=== PATIENT | male | born 1950 | race Caucasian/White ===

== ENCOUNTER 2021-08-02 07:59 | Inpatient (IN) | payer BC, MEDICARE ==
[~2021-08-02 07:59] MED LIST: Dexamethasone 4 MG/ML SDV ONE; Glycopyrrolate 0.2 MG/ML 5 ML MDV ONE; Heparin Sodium 5,000 Units/ML Vial ONE; Neostigmine Methylsulfate 1 MG/ML 5 ML Syringe ONE; Ondansetron 4 MG/2 ML SDV ONE; Propofol 200 MG/20 ML SDV ONE; Rocuronium 50 MG/5 ML Vial ONE; Sodium Chloride 0.9% 10 ML ONE; Succinylcholine 200 MG/10 ML MDV ONE; fentaNYL 250 MCG/5 ML SDV ONE
[2021-08-02] MEDS ORDERED: Sodium Chloride 0.9% 500 ML ONE (08:11)
[2021-08-02] MEDS ORDERED: Acetaminophen 500 MG Tab PO ONE (08:15)
[2021-08-02 09:07] LABS: CORONAVIRUS COVID-19 NAA NEGATIVE (NEGATIVE)
[2021-08-02] MEDS ORDERED: Dextrose 5%-Lactated Ringers 1,000 ML IV SCH (09:15)
[2021-08-02] MEDS ORDERED: Ketamine 500 MG/5 ML MDV IV SCH (10:00)
[2021-08-02] MEDS ORDERED: Naloxone 0.4 MG/ML SDV IVPUSH PRN (10:00)
[2021-08-02] MEDS ORDERED: ceFAZolin 2 GM in Premix Bag 1 BAG IV ONE (10:00)
[2021-08-02] MEDS ORDERED: Ketamine 20 MG in Sodium Chloride 0.9% 19.8 ML IV SCH (10:00)
[2021-08-02] MEDS ORDERED: Lidocaine 2% Viscous Solution 15 ML UD ONE (10:08)
[2021-08-02] MEDS ORDERED: Lidocaine 4% Top Soln 50 ML Bottle ONE (10:08)
[2021-08-02] MEDS ORDERED: Lidocaine 1% 2 ML ONE (12:32)
[2021-08-02] MEDS ORDERED: Rocuronium 50 MG/5 ML Vial ONE ×2 (13:05→14:24)
[2021-08-02] MEDS ORDERED: fentaNYL 100 MCG/2 ML SDV ONE ×2 (13:23→14:09)
[2021-08-02] MEDS ORDERED: Meropenem 500 MG SDV ONE ×2 (13:27→15:26)
[2021-08-02] MEDS: Bupivacaine 0.5%/EPINEPHrine 1:200,000 50 ML MDV ONE ×2 (13:51→16:00)
[2021-08-02] MEDS ORDERED: Indocyanine Green 25 MG SDV ONE (14:00)
[2021-08-02] MEDS ORDERED: Lactated Ringers 1,000 ML ONE (14:28)
[2021-08-02] MEDS ORDERED: Sodium Chloride 0.9% 10 ML ONE (15:26)
[2021-08-02] MEDS ORDERED: Cyclobenzaprine 10 MG Tab PO PRN (16:51)
[2021-08-02] MEDS ORDERED: Ondansetron 4 MG/2 ML SDV IVPUSH PRN (17:00)
[2021-08-02] MEDS: Dextrose 5%-Lactated Ringers 1,000 ML IV SCH (17:40)
[2021-08-02] MEDS ORDERED: diphenhydrAMINE 50 MG/ML SDV IVPUSH PRN (18:00)
[2021-08-02] MEDS ORDERED: Lactated Ringers 500 ML IV ONE (18:00)
[2021-08-02] MEDS: fentaNYL 2,500 MCG in Sodium Chloride 0.9% 200 ML EPIDUR SCH (18:11)
[2021-08-02] MEDS: Acetaminophen 500 MG Tab PO SCH (18:29)
[2021-08-02] MEDS: ceFAZolin 2 GM in Premix Bag 1 BAG IV SCH (20:45)
[2021-08-02] MEDS: Phenytoin 100 MG Cap.ER PO SCH (20:47)
[2021-08-02] MEDS: Ibuprofen 600 MG Tab PO SCH (20:48)
[2021-08-02] MEDS: Pantoprazole 40 MG Vial IVPUSH SCH (20:53)
[2021-08-03] MEDS: Dextrose 5%-Lactated Ringers 1,000 ML IV SCH ×5 (00:21→22:39)
[2021-08-03] MEDS: Acetaminophen 500 MG Tab PO SCH ×5 (00:50→23:33)
[2021-08-03] MEDS ORDERED: Lactated Ringers 500 ML IV ONE (03:05)
[2021-08-03] MEDS: Ibuprofen 600 MG Tab PO SCH ×4 (03:08→20:10)
[2021-08-03] MEDS: ceFAZolin 2 GM in Premix Bag 1 BAG IV SCH ×3 (04:18→20:06)
[2021-08-03] MEDS: fentaNYL 2,500 MCG in Sodium Chloride 0.9% 200 ML EPIDUR SCH (08:00)
[2021-08-03] MEDS ORDERED: buPROPion 150 MG Tab.SR PO SCH (09:00)
[2021-08-03] MEDS: Losartan 50 MG Tab PO SCH (09:44)
[2021-08-03] MEDS: Aspirin 325 MG Tab.EC PO SCH (09:45)
[2021-08-03] MEDS: amLODIPine 5 MG Tab PO SCH (09:46)
[2021-08-03] MEDS: Metoprolol Succinate 50 MG Tab.ER PO SCH (09:47)
[2021-08-03] MEDS: Phenytoin 100 MG Cap.ER PO SCH ×2 (09:47→20:12)
[2021-08-03] MEDS: Pantoprazole 40 MG Vial IVPUSH SCH (20:09)
[2021-08-04] MEDS: Ibuprofen 600 MG Tab PO SCH ×4 (01:54→20:04)
[2021-08-04] MEDS: ceFAZolin 2 GM in Premix Bag 1 BAG IV SCH ×3 (04:58→21:10)
[2021-08-04] MEDS: fentaNYL 2,500 MCG in Sodium Chloride 0.9% 200 ML EPIDUR SCH (05:41)
[2021-08-04] MEDS: Acetaminophen 500 MG Tab PO SCH ×4 (05:43→23:57)
[2021-08-04] MEDS ORDERED: Haloperidol Lactate 5 MG/ML SDV IVPUSH PRN (08:00)
[2021-08-04] MEDS: Magnesium Sulfate/Water 2 GM in Premix Bag 1 BAG IV SCH ×3 (08:05→20:05)
[2021-08-04] MEDS: Dextrose 5%-Lactated Ringers 1,000 ML IV SCH ×2 (09:01→21:30)
[2021-08-04] MEDS: Losartan 50 MG Tab PO SCH (09:02)
[2021-08-04] MEDS: Aspirin 325 MG Tab.EC PO SCH (09:03)
[2021-08-04] MEDS: amLODIPine 5 MG Tab PO SCH (09:04)
[2021-08-04] MEDS: Phenytoin 100 MG Cap.ER PO SCH ×2 (09:05→20:11)
[2021-08-04] MEDS: Metoprolol Succinate 50 MG Tab.ER PO SCH (09:05)
[2021-08-04] MEDS: buPROPion 150 MG Tab.SR PO SCH ×2 (09:06→21:15)
[2021-08-04] MEDS: Pantoprazole 40 MG Vial IVPUSH SCH (20:07)
[2021-08-04] MEDS ORDERED: Haloperidol Lactate 5 MG/ML SDV ONE (21:57)
[2021-08-04] MEDS: Haloperidol Lactate 5 MG/ML SDV IVPUSH PRN (22:11)
[2021-08-05] MEDS: Haloperidol Lactate 5 MG/ML SDV IVPUSH PRN ×5 (00:10→20:16)
[2021-08-05] MEDS: Magnesium Sulfate/Water 2 GM in Premix Bag 1 BAG IV SCH ×4 (01:23→19:23)
[2021-08-05] MEDS: Ibuprofen 600 MG Tab PO SCH ×4 (01:26→21:09)
[2021-08-05] MEDS: hydrOXYzine HCL 100 MG/2 ML SDV IM PRN (01:27)
[2021-08-05] MEDS: ceFAZolin 2 GM in Premix Bag 1 BAG IV SCH ×3 (03:54→19:22)
[2021-08-05] MEDS: Acetaminophen 500 MG Tab PO SCH ×4 (06:28→23:25)
[2021-08-05] MEDS: fentaNYL 2,500 MCG in Sodium Chloride 0.9% 200 ML EPIDUR SCH (07:02)
[2021-08-05] MEDS ORDERED: Furosemide 20 MG/2 ML VIAL IVPUSH ONE (07:30)
[2021-08-05] MEDS: Potassium Phos in 0.9 % NaCl 15 MMOL in Premix Bag 1 BAG IV SCH ×4 (08:36→13:17)
[2021-08-05] MEDS: Losartan 50 MG Tab PO SCH (10:08)
[2021-08-05] MEDS: amLODIPine 5 MG Tab PO SCH (10:09)
[2021-08-05] MEDS: Aspirin 325 MG Tab.EC PO SCH (10:11)
[2021-08-05] MEDS: Metoprolol Succinate 50 MG Tab.ER PO SCH (10:12)
[2021-08-05] MEDS: buPROPion 150 MG Tab.SR PO SCH ×2 (10:47→21:09)
[2021-08-05] MEDS: Phenytoin 100 MG Cap.ER PO SCH ×2 (10:47→21:08)
[2021-08-05] MEDS ORDERED: Heparin Sodium 5,000 UNITS in Sodium Chloride 0.9% 500 ML IV SCH (12:00)
[2021-08-05] MEDS: Naloxone 0.4 MG/ML SDV IV PRN (12:42)
[2021-08-05] MEDS: Dextrose 5%-Lactated Ringers 1,000 ML IV SCH (12:42)
[2021-08-05] MEDS: LORazepam 2 MG/ML SDV IVPUSH PRN ×2 (18:09→21:22)
[2021-08-05] MEDS: Pantoprazole 40 MG Vial IVPUSH SCH (19:22)
[2021-08-05] MEDS ORDERED: Lactated Ringers 1,000 ML IV ONE (22:35)
[2021-08-06] MEDS: Haloperidol Lactate 5 MG/ML SDV IVPUSH PRN ×6 (01:00→20:30)
[2021-08-06] MEDS: Ibuprofen 600 MG Tab PO SCH ×4 (01:01→20:22)
[2021-08-06] MEDS: Magnesium Sulfate/Water 2 GM in Premix Bag 1 BAG IV SCH ×4 (01:02→19:41)
[2021-08-06] MEDS: LORazepam 2 MG/ML SDV IVPUSH PRN ×5 (01:12→22:19)
[2021-08-06] MEDS: Naloxone 0.4 MG/ML SDV IV PRN (01:13)
[2021-08-06] MEDS: Dextrose 5%-Lactated Ringers 1,000 ML IV SCH ×2 (01:13→22:10)
[2021-08-06] MEDS: ceFAZolin 2 GM in Premix Bag 1 BAG IV SCH ×3 (04:10→19:35)
[2021-08-06] MEDS: Acetaminophen 500 MG Tab PO SCH ×3 (05:41→17:29)
[2021-08-06] MEDS ORDERED: Naloxone 0.4 MG/ML SDV IV PRN ×2 (08:00→20:50)
[2021-08-06] MEDS: HYDROmorphone/Normal Saline 6 MG/30 ML PCA Vial IV PRN ×2 (08:15→08:30)
[2021-08-06] MEDS: Potassium Phos in 0.9 % NaCl 15 MMOL in Premix Bag 1 BAG IV SCH ×4 (09:36→12:44)
[2021-08-06] MEDS: Phenytoin 100 MG Cap.ER PO SCH ×2 (09:45→20:23)
[2021-08-06] MEDS: Metoprolol Succinate 50 MG Tab.ER PO SCH (09:45)
[2021-08-06] MEDS: amLODIPine 5 MG Tab PO SCH (09:45)
[2021-08-06] MEDS: Aspirin 325 MG Tab.EC PO SCH (09:45)
[2021-08-06] MEDS: Losartan 50 MG Tab PO SCH (09:46)
[2021-08-06] MEDS: buPROPion 150 MG Tab.SR PO SCH ×2 (09:51→20:23)
[2021-08-06] MEDS: Bisacodyl 5 MG Tab PO SCH ×2 (10:31→20:23)
[2021-08-06] MEDS: Docusate Sodium 100 MG Cap PO SCH ×2 (10:35→20:23)
[2021-08-06] MEDS: Pantoprazole 40 MG Vial IVPUSH SCH (19:36)
[2021-08-07] MEDS: Acetaminophen 500 MG Tab PO SCH ×4 (00:45→17:36)
[2021-08-07] MEDS: Haloperidol Lactate 5 MG/ML SDV IVPUSH PRN ×6 (01:21→20:45)
[2021-08-07] MEDS: Magnesium Sulfate/Water 2 GM in Premix Bag 1 BAG IV SCH (01:23)
[2021-08-07] MEDS: Ibuprofen 600 MG Tab PO SCH ×4 (01:27→20:33)
[2021-08-07] MEDS: LORazepam 2 MG/ML SDV IVPUSH PRN ×5 (02:28→20:57)
[2021-08-07] MEDS: ceFAZolin 2 GM in Premix Bag 1 BAG IV SCH ×3 (03:39→20:30)
[2021-08-07] MEDS: Aspirin 325 MG Tab.EC PO SCH (09:50)
[2021-08-07] MEDS: Losartan 50 MG Tab PO SCH (09:50)
[2021-08-07] MEDS: Bisacodyl 5 MG Tab PO SCH ×2 (09:50→20:31)
[2021-08-07] MEDS: Docusate Sodium 100 MG Cap PO SCH ×2 (09:50→20:31)
[2021-08-07] MEDS: amLODIPine 5 MG Tab PO SCH (09:55)
[2021-08-07] MEDS: Metoprolol Succinate 50 MG Tab.ER PO SCH (09:55)
[2021-08-07] MEDS: Phenytoin 100 MG Cap.ER PO SCH ×2 (09:55→20:33)
[2021-08-07] MEDS: buPROPion 150 MG Tab.SR PO SCH ×2 (09:55→20:33)
[2021-08-07] MEDS ORDERED: Furosemide 20 MG/2 ML VIAL IVPUSH ONE (11:30)
[2021-08-07] MEDS: Potassium Phos in 0.9 % NaCl 15 MMOL in Premix Bag 1 BAG IV SCH ×4 (13:53→15:39)
[2021-08-07] MEDS: HYDROmorphone/Normal Saline 6 MG/30 ML PCA Vial IV PRN (14:11)
[2021-08-07] MEDS: MVI, Adult with Vitamin K 10 ML, Thiamine 100 MG, Zinc/Copper/Manganese/Selenium 1 ML i... IV SCH ×4 (15:35)
[2021-08-07] MEDS: Pantoprazole 40 MG Vial IVPUSH SCH (20:34)
[2021-08-07] MEDS: hydrOXYzine HCL 100 MG/2 ML SDV IM PRN (21:54)
[2021-08-08] MEDS: Acetaminophen 500 MG Tab PO SCH ×4 (00:03→17:35)
[2021-08-08] MEDS: Haloperidol Lactate 5 MG/ML SDV IVPUSH PRN ×7 (00:08→22:20)
[2021-08-08] MEDS: LORazepam 2 MG/ML SDV IVPUSH PRN ×7 (00:20→23:40)
[2021-08-08] MEDS: Ibuprofen 600 MG Tab PO SCH ×4 (01:16→19:57)
[2021-08-08] MEDS ORDERED: Dimethicone 20%/Zinc Oxide 25% 56 GM Spray Bottle TOP PRN (03:04)
[2021-08-08] MEDS: ceFAZolin 2 GM in Premix Bag 1 BAG IV SCH ×3 (03:53→19:57)
[2021-08-08] MEDS: Dextrose 5%-Lactated Ringers 1,000 ML IV SCH (05:23)
[2021-08-08] MEDS: Metoprolol Succinate 50 MG Tab.ER PO SCH (11:07)
[2021-08-08] MEDS: Docusate Sodium 100 MG Cap PO SCH ×2 (11:07→20:01)
[2021-08-08] MEDS: Aspirin 325 MG Tab.EC PO SCH (11:09)
[2021-08-08] MEDS: Losartan 50 MG Tab PO SCH (11:09)
[2021-08-08] MEDS: Phenytoin 100 MG Cap.ER PO SCH ×2 (11:10→20:01)
[2021-08-08] MEDS: amLODIPine 5 MG Tab PO SCH (11:10)
[2021-08-08] MEDS: buPROPion 150 MG Tab.SR PO SCH ×2 (11:16→20:01)
[2021-08-08] MEDS: Bacitracin Oint 1 GM U/D Packet TOP SCH (11:17)
[2021-08-08] MEDS ORDERED: Furosemide 20 MG/2 ML VIAL IVPUSH ONE (12:00)
[2021-08-08] MEDS: Potassium Phos in 0.9 % NaCl 15 MMOL in Premix Bag 1 BAG IV SCH ×6 (13:43→18:12)
[2021-08-08] MEDS: MVI, Adult with Vitamin K 10 ML, Thiamine 100 MG, Zinc/Copper/Manganese/Selenium 1 ML i... IV SCH ×4 (16:13)
[2021-08-08] MEDS: Pantoprazole 40 MG Vial IVPUSH SCH (19:57)
[2021-08-08] MEDS: HYDROmorphone/Normal Saline 6 MG/30 ML PCA Vial IV PRN (22:23)
[2021-08-09] MEDS: Haloperidol Lactate 5 MG/ML SDV IVPUSH PRN ×3 (00:43→09:01)
[2021-08-09] MEDS: Acetaminophen 500 MG Tab PO SCH ×4 (00:44→19:07)
[2021-08-09] MEDS: LORazepam 2 MG/ML SDV IVPUSH PRN (01:23)
[2021-08-09] MEDS: Ibuprofen 600 MG Tab PO SCH ×2 (04:19→08:27)
[2021-08-09] MEDS: ceFAZolin 2 GM in Premix Bag 1 BAG IV SCH ×3 (04:19→20:44)
[2021-08-09] MEDS: Dextrose 5%-Lactated Ringers 1,000 ML IV SCH (04:29)
[2021-08-09] MEDS: Metoprolol Succinate 50 MG Tab.ER PO SCH (08:24)
[2021-08-09] MEDS: Losartan 50 MG Tab PO SCH (08:24)
[2021-08-09] MEDS: Docusate Sodium 100 MG Cap PO SCH ×2 (08:25→20:36)
[2021-08-09] MEDS: buPROPion 150 MG Tab.SR PO SCH ×2 (08:25→20:58)
[2021-08-09] MEDS: amLODIPine 5 MG Tab PO SCH (08:25)
[2021-08-09] MEDS: Aspirin 325 MG Tab.EC PO SCH (08:25)
[2021-08-09] MEDS: Phenytoin 100 MG Cap.ER PO SCH (08:26)
[2021-08-09] MEDS ORDERED: Ketorolac 30 MG/ML SDV IVPUSH PRN (09:49)
[2021-08-09] MEDS ORDERED: Phenytoin 250 MG in Sodium Chloride 0.9% 100 ML IV SCH (10:00)
[2021-08-09] MEDS ORDERED: Sodium Chloride 0.9% 1,000 ML IV SCH (10:45)
[2021-08-09] MEDS: Phenytoin 250 MG/5 ML SDV IV SCH ×2 (11:41→21:46)
[2021-08-09] MEDS: Nicotine 21 MG/24 Hr Patch TRDERM SCH (11:41)
[2021-08-09] MEDS: Bacitracin Oint 1 GM U/D Packet TOP SCH (13:39)
[2021-08-09] MEDS: MVI, Adult with Vitamin K 10 ML, Thiamine 100 MG, Zinc/Copper/Manganese/Selenium 1 ML i... IV SCH ×4 (18:22)
[2021-08-09] MEDS: Pantoprazole 40 MG Vial IVPUSH SCH (20:37)
[2021-08-09] MEDS ORDERED: Meropenem 1 GM in Sodium Chloride 0.9% 100 ML IV SCH (23:00)
[2021-08-10] MEDS: Azithromycin 500 MG in Sodium Chloride 0.9% 250 ML IV SCH ×2 (00:47→23:03)
[2021-08-10] MEDS: Acetaminophen 500 MG Tab PO SCH ×5 (03:12→23:05)
[2021-08-10] MEDS ORDERED: Potassium Phosphates 60 MMOLE in Sodium Chloride 0.9% 250 ML IV SCH (07:45)
[2021-08-10] MEDS ORDERED: Furosemide 20 MG/2 ML VIAL IVPUSH ONE ×2 (07:50→14:00)
[2021-08-10] MEDS: Meropenem 1 GM in Sodium Chloride 0.9% 100 ML IV SCH ×2 (08:08→16:29)
[2021-08-10] MEDS: Docusate Sodium 100 MG Cap PO SCH ×2 (08:46→21:44)
[2021-08-10] MEDS: Metoprolol Succinate 50 MG Tab.ER PO SCH (08:55)
[2021-08-10] MEDS: amLODIPine 5 MG Tab PO SCH (08:55)
[2021-08-10] MEDS: Aspirin 325 MG Tab.EC PO SCH (08:55)
[2021-08-10] MEDS: buPROPion 150 MG Tab.SR PO SCH ×2 (08:55→21:35)
[2021-08-10] MEDS: Losartan 50 MG Tab PO SCH (08:56)
[2021-08-10] MEDS: Nicotine 21 MG/24 Hr Patch TRDERM SCH (08:58)
[2021-08-10] MEDS: Phenytoin 250 MG/5 ML SDV IV SCH (09:03)
[2021-08-10] MEDS: Bacitracin Oint 1 GM U/D Packet TOP SCH (10:36)
[2021-08-10] MEDS: Potassium Phos in 0.9 % NaCl 15 MMOL in Premix Bag 1 BAG IV SCH ×8 (10:36→20:50)
[2021-08-10] MEDS: Magnesium Sulfate/Water 2 GM/50 ML BAG IV SCH ×3 (10:44→20:47)
[2021-08-10] MEDS ORDERED: Pantoprazole 40 MG Tab.CR PO SCH (21:00)
[2021-08-10] MEDS: Phenytoin 100 MG Cap.ER PO SCH (21:35)
[2021-08-10] MEDS: Melatonin 3 MG Tab PO SCH (21:35)
[2021-08-11] MEDS: Meropenem 1 GM in Sodium Chloride 0.9% 100 ML IV SCH (00:22)
[2021-08-11] MEDS: Magnesium Sulfate/Water 2 GM/50 ML BAG IV SCH ×4 (03:03→20:44)
[2021-08-11] MEDS: Acetaminophen 500 MG Tab PO SCH ×4 (06:13→23:02)
[2021-08-11] MEDS ORDERED: Furosemide 20 MG/2 ML VIAL IV ONE (08:00)
[2021-08-11] MEDS: buPROPion 150 MG Tab.SR PO SCH ×2 (08:49→21:13)
[2021-08-11] MEDS: Losartan 50 MG Tab PO SCH (08:50)
[2021-08-11] MEDS: Aspirin 325 MG Tab.EC PO SCH (08:50)
[2021-08-11] MEDS: Phenytoin 100 MG Cap.ER PO SCH ×2 (08:50→21:13)
[2021-08-11] MEDS: Metoprolol Succinate 50 MG Tab.ER PO SCH (08:50)
[2021-08-11] MEDS: amLODIPine 5 MG Tab PO SCH (08:51)
[2021-08-11] MEDS: Nicotine 21 MG/24 Hr Patch TRDERM SCH (08:56)
[2021-08-11] MEDS: Potassium Acetate 20 MEQ in Sodium Chloride 0.9% 150 ML IV SCH ×2 (11:26→13:26)
[2021-08-11] MEDS: Bacitracin Oint 1 GM U/D Packet TOP SCH (12:15)
[2021-08-11] MEDS: Vancomycin 125 MG Cap PO SCH ×3 (14:17→21:13)
[2021-08-11] MEDS: Lactobacillus Rhamnosus GG (Probiotic) Cap PO SCH (21:13)
[2021-08-11] MEDS: Famotidine 20 MG Tab PO SCH (21:13)
[2021-08-11] MEDS: Gabapentin 300 MG Cap PO SCH (21:13)
[2021-08-11] MEDS: Melatonin 3 MG Tab PO SCH (21:13)
[2021-08-12] MEDS: Magnesium Sulfate/Water 2 GM/50 ML BAG IV SCH ×4 (02:40→21:26)
[2021-08-12] MEDS: Vancomycin 125 MG Cap PO SCH ×4 (05:27→21:21)
[2021-08-12] MEDS: Acetaminophen 500 MG Tab PO SCH ×3 (05:27→18:15)
[2021-08-12] MEDS ORDERED: Furosemide 20 MG/2 ML VIAL IV ONE (07:30)
[2021-08-12] MEDS ORDERED: Potassium Chloride 20 MEQ Tab.ER PO ONE (07:30)
[2021-08-12] MEDS: Phenytoin 100 MG Cap.ER PO SCH ×2 (09:51→21:25)
[2021-08-12] MEDS: Aspirin 325 MG Tab.EC PO SCH (09:51)
[2021-08-12] MEDS: Bacitracin Oint 1 GM U/D Packet TOP SCH (09:51)
[2021-08-12] MEDS: Metoprolol Succinate 50 MG Tab.ER PO SCH (09:52)
[2021-08-12] MEDS: amLODIPine 5 MG Tab PO SCH (09:53)
[2021-08-12] MEDS: Lactobacillus Rhamnosus GG (Probiotic) Cap PO SCH ×2 (09:55→21:24)
[2021-08-12] MEDS: buPROPion 150 MG Tab.SR PO SCH ×2 (09:56→21:23)
[2021-08-12] MEDS: Losartan 50 MG Tab PO SCH (09:56)
[2021-08-12] MEDS: Nicotine 21 MG/24 Hr Patch TRDERM SCH (09:57)
[2021-08-12] MEDS: Gabapentin 300 MG Cap PO SCH (21:23)
[2021-08-12] MEDS: Famotidine 20 MG Tab PO SCH (21:24)
[2021-08-12] MEDS: Melatonin 3 MG Tab PO SCH (21:26)
[2021-08-13] MEDS: Acetaminophen 500 MG Tab PO SCH ×6 (00:02→23:15)
[2021-08-13] MEDS: Magnesium Sulfate/Water 2 GM/50 ML BAG IV SCH (03:25)
[2021-08-13] MEDS: Vancomycin 125 MG Cap PO SCH ×4 (05:56→21:05)
[2021-08-13] MEDS: Bacitracin Oint 28.35 GM Tube TOP SCH (08:44)
[2021-08-13] MEDS: Metoprolol Succinate 50 MG Tab.ER PO SCH (08:44)
[2021-08-13] MEDS: amLODIPine 5 MG Tab PO SCH (08:45)
[2021-08-13] MEDS: Phenytoin 100 MG Cap.ER PO SCH ×2 (08:45→21:04)
[2021-08-13] MEDS: buPROPion 150 MG Tab.SR PO SCH ×2 (08:45→21:03)
[2021-08-13] MEDS: Lactobacillus Rhamnosus GG (Probiotic) Cap PO SCH ×2 (08:45→21:03)
[2021-08-13] MEDS: Losartan 50 MG Tab PO SCH (08:45)
[2021-08-13] MEDS: Aspirin 325 MG Tab.EC PO SCH (08:45)
[2021-08-13] MEDS: Nicotine 21 MG/24 Hr Patch TRDERM SCH (08:57)
[2021-08-13] MEDS: Melatonin 3 MG Tab PO SCH (21:03)
[2021-08-13] MEDS: Gabapentin 300 MG Cap PO SCH (21:04)
[2021-08-13] MEDS: Famotidine 20 MG Tab PO SCH (21:04)
[2021-08-14] MEDS: Acetaminophen 500 MG Tab PO SCH ×3 (05:02→17:53)
[2021-08-14] MEDS: Vancomycin 125 MG Cap PO SCH ×5 (05:03→21:36)
[2021-08-14] MEDS: Nicotine 21 MG/24 Hr Patch TRDERM SCH (08:46)
[2021-08-14] MEDS: Aspirin 325 MG Tab.EC PO SCH (08:47)
[2021-08-14] MEDS: Phenytoin 100 MG Cap.ER PO SCH ×2 (08:47→20:22)
[2021-08-14] MEDS: Lactobacillus Rhamnosus GG (Probiotic) Cap PO SCH ×2 (08:47→20:21)
[2021-08-14] MEDS: buPROPion 150 MG Tab.SR PO SCH ×2 (08:47→20:21)
[2021-08-14] MEDS: Metoprolol Succinate 50 MG Tab.ER PO SCH (09:10)
[2021-08-14] MEDS: amLODIPine 5 MG Tab PO SCH (09:11)
[2021-08-14] MEDS: Bacitracin Oint 28.35 GM Tube TOP SCH (09:11)
[2021-08-14] MEDS: Losartan 50 MG Tab PO SCH (09:11)
[2021-08-14] MEDS: Melatonin 3 MG Tab PO SCH (20:20)
[2021-08-14] MEDS: Gabapentin 300 MG Cap PO SCH (20:21)
[2021-08-14] MEDS: Famotidine 20 MG Tab PO SCH (20:21)
[2021-08-15] MEDS: Acetaminophen 500 MG Tab PO SCH ×4 (01:26→17:10)
[2021-08-15] MEDS: Vancomycin 125 MG Cap PO SCH ×4 (05:44→21:30)
[2021-08-15] MEDS: Nicotine 21 MG/24 Hr Patch TRDERM SCH (08:33)
[2021-08-15] MEDS: Bacitracin Oint 28.35 GM Tube TOP SCH (08:36)
[2021-08-15] MEDS: Aspirin 325 MG Tab.EC PO SCH (08:36)
[2021-08-15] MEDS: Phenytoin 100 MG Cap.ER PO SCH ×2 (08:36→21:31)
[2021-08-15] MEDS: Losartan 50 MG Tab PO SCH (08:37)
[2021-08-15] MEDS: amLODIPine 5 MG Tab PO SCH (08:37)
[2021-08-15] MEDS: Lactobacillus Rhamnosus GG (Probiotic) Cap PO SCH ×2 (08:38→21:30)
[2021-08-15] MEDS: buPROPion 150 MG Tab.SR PO SCH ×2 (08:38→21:30)
[2021-08-15] MEDS: Metoprolol Succinate 50 MG Tab.ER PO SCH (08:38)
[2021-08-15] MEDS: Gabapentin 300 MG Cap PO SCH (21:30)
[2021-08-15] MEDS: Melatonin 3 MG Tab PO SCH (21:31)
[2021-08-15] MEDS: Famotidine 20 MG Tab PO SCH (21:31)
[2021-08-16] MEDS: Acetaminophen 500 MG Tab PO SCH ×4 (01:06→17:01)
[2021-08-16] MEDS: Vancomycin 125 MG Cap PO SCH ×4 (05:24→21:04)
[2021-08-16] MEDS: Aspirin 325 MG Tab.EC PO SCH (09:45)
[2021-08-16] MEDS: Lactobacillus Rhamnosus GG (Probiotic) Cap PO SCH ×2 (09:45→21:04)
[2021-08-16] MEDS: Losartan 50 MG Tab PO SCH (09:46)
[2021-08-16] MEDS: Metoprolol Succinate 50 MG Tab.ER PO SCH (09:46)
[2021-08-16] MEDS: Phenytoin 100 MG Cap.ER PO SCH ×2 (09:46→21:04)
[2021-08-16] MEDS: amLODIPine 5 MG Tab PO SCH (09:47)
[2021-08-16] MEDS: buPROPion 150 MG Tab.SR PO SCH ×2 (09:48→21:03)
[2021-08-16] MEDS: Bacitracin Oint 28.35 GM Tube TOP SCH (09:50)
[2021-08-16] MEDS: Nicotine 21 MG/24 Hr Patch TRDERM SCH (09:50)
[2021-08-16] MEDS: Melatonin 3 MG Tab PO SCH (21:04)
[2021-08-16] MEDS: Gabapentin 300 MG Cap PO SCH (21:05)
[2021-08-16] MEDS: Famotidine 20 MG Tab PO SCH (21:05)
[2021-08-17] MEDS: Acetaminophen 500 MG Tab PO SCH ×5 (02:14→23:39)
[2021-08-17] MEDS: Vancomycin 125 MG Cap PO SCH ×4 (05:56→21:28)
[2021-08-17] MEDS: buPROPion 150 MG Tab.SR PO SCH ×2 (08:43→21:28)
[2021-08-17] MEDS: Lactobacillus Rhamnosus GG (Probiotic) Cap PO SCH ×2 (08:43→21:25)
[2021-08-17] MEDS: Losartan 50 MG Tab PO SCH (08:43)
[2021-08-17] MEDS: Metoprolol Succinate 50 MG Tab.ER PO SCH (08:43)
[2021-08-17] MEDS: Aspirin 325 MG Tab.EC PO SCH (08:44)
[2021-08-17] MEDS: Nicotine 21 MG/24 Hr Patch TRDERM SCH (08:44)
[2021-08-17] MEDS: amLODIPine 5 MG Tab PO SCH (08:44)
[2021-08-17] MEDS: Phenytoin 100 MG Cap.ER PO SCH ×2 (08:45→21:26)
[2021-08-17] MEDS: Bacitracin Oint 28.35 GM Tube TOP SCH (08:45)
[2021-08-17] MEDS: Melatonin 3 MG Tab PO SCH (21:25)
[2021-08-17] MEDS: Gabapentin 300 MG Cap PO SCH (21:26)
[2021-08-17] MEDS: Famotidine 20 MG Tab PO SCH (21:26)
[2021-08-18] MEDS: Acetaminophen 500 MG Tab PO SCH ×4 (05:20→23:06)
[2021-08-18] MEDS: Vancomycin 125 MG Cap PO SCH ×4 (05:20→21:15)
[2021-08-18] MEDS: buPROPion 150 MG Tab.SR PO SCH ×2 (08:30→21:16)
[2021-08-18] MEDS: Phenytoin 100 MG Cap.ER PO SCH ×2 (08:31→21:15)
[2021-08-18] MEDS: Losartan 50 MG Tab PO SCH (08:31)
[2021-08-18] MEDS: Metoprolol Succinate 50 MG Tab.ER PO SCH (08:31)
[2021-08-18] MEDS: Bacitracin Oint 28.35 GM Tube TOP SCH (08:32)
[2021-08-18] MEDS: Lactobacillus Rhamnosus GG (Probiotic) Cap PO SCH ×2 (08:32→21:16)
[2021-08-18] MEDS: Aspirin 325 MG Tab.EC PO SCH (08:32)
[2021-08-18] MEDS: Nicotine 21 MG/24 Hr Patch TRDERM SCH (08:33)
[2021-08-18] MEDS: amLODIPine 5 MG Tab PO SCH (08:33)
[2021-08-18] MEDS: Famotidine 20 MG Tab PO SCH (21:15)
[2021-08-18] MEDS: Gabapentin 300 MG Cap PO SCH (21:15)
[2021-08-18] MEDS: Melatonin 3 MG Tab PO SCH (21:16)
[2021-08-19] MEDS: Vancomycin 125 MG Cap PO SCH ×4 (05:13→21:09)
[2021-08-19] MEDS: Acetaminophen 500 MG Tab PO SCH ×4 (05:13→23:25)
[2021-08-19] MEDS: amLODIPine 5 MG Tab PO SCH (09:37)
[2021-08-19] MEDS: Losartan 50 MG Tab PO SCH (09:38)
[2021-08-19] MEDS: Nicotine 21 MG/24 Hr Patch TRDERM SCH (09:38)
[2021-08-19] MEDS: Aspirin 325 MG Tab.EC PO SCH (09:38)
[2021-08-19] MEDS: Lactobacillus Rhamnosus GG (Probiotic) Cap PO SCH ×2 (09:38→21:08)
[2021-08-19] MEDS: Phenytoin 100 MG Cap.ER PO SCH ×2 (09:38→21:09)
[2021-08-19] MEDS: Bacitracin Oint 28.35 GM Tube TOP SCH (09:39)
[2021-08-19] MEDS: Metoprolol Succinate 50 MG Tab.ER PO SCH (09:39)
[2021-08-19] MEDS: buPROPion 150 MG Tab.SR PO SCH ×2 (09:39→21:09)
[2021-08-19] MEDS: Melatonin 3 MG Tab PO SCH (21:08)
[2021-08-19] MEDS: Gabapentin 300 MG Cap PO SCH (21:09)
[2021-08-19] MEDS: Famotidine 20 MG Tab PO SCH (21:09)
[2021-08-20] MEDS: Acetaminophen 500 MG Tab PO SCH ×4 (05:20→23:38)
[2021-08-20] MEDS: Vancomycin 125 MG Cap PO SCH ×4 (05:20→23:38)
[2021-08-20] MEDS: Bacitracin Oint 28.35 GM Tube TOP SCH (09:11)
[2021-08-20] MEDS: Losartan 50 MG Tab PO SCH (09:13)
[2021-08-20] MEDS: Aspirin 325 MG Tab.EC PO SCH (09:15)
[2021-08-20] MEDS: Lactobacillus Rhamnosus GG (Probiotic) Cap PO SCH ×2 (09:15→20:42)
[2021-08-20] MEDS: Nicotine 21 MG/24 Hr Patch TRDERM SCH (09:17)
[2021-08-20] MEDS: amLODIPine 5 MG Tab PO SCH (09:18)
[2021-08-20] MEDS: Phenytoin 100 MG Cap.ER PO SCH ×2 (09:18→20:44)
[2021-08-20] MEDS: Metoprolol Succinate 50 MG Tab.ER PO SCH (09:19)
[2021-08-20] MEDS: buPROPion 150 MG Tab.SR PO SCH ×2 (09:20→20:45)
[2021-08-20] MEDS: Melatonin 3 MG Tab PO SCH (20:43)
[2021-08-20] MEDS: Gabapentin 300 MG Cap PO SCH (20:43)
[2021-08-20] MEDS: Famotidine 20 MG Tab PO SCH (20:44)
[2021-08-21] MEDS: Acetaminophen 500 MG Tab PO SCH ×4 (06:15→23:45)
[2021-08-21] MEDS: Vancomycin 125 MG Cap PO SCH (06:15)
[2021-08-21] MEDS: Bacitracin Oint 28.35 GM Tube TOP SCH (08:01)
[2021-08-21] MEDS: Losartan 50 MG Tab PO SCH (08:01)
[2021-08-21] MEDS: Lactobacillus Rhamnosus GG (Probiotic) Cap PO SCH ×2 (08:02→21:24)
[2021-08-21] MEDS: Aspirin 325 MG Tab.EC PO SCH (08:03)
[2021-08-21] MEDS: amLODIPine 5 MG Tab PO SCH (08:03)
[2021-08-21] MEDS: Nicotine 21 MG/24 Hr Patch TRDERM SCH (08:03)
[2021-08-21] MEDS: Metoprolol Succinate 50 MG Tab.ER PO SCH (08:04)
[2021-08-21] MEDS: Phenytoin 100 MG Cap.ER PO SCH ×2 (08:04→21:24)
[2021-08-21] MEDS: buPROPion 150 MG Tab.SR PO SCH ×2 (08:05→21:24)
[2021-08-21] MEDS: Nystatin Susp 100,000 Unit/ML 5 ML UD Cup PO SCH ×4 (10:08→21:28)
[2021-08-21] MEDS: Melatonin 3 MG Tab PO SCH (21:24)
[2021-08-21] MEDS: Famotidine 20 MG Tab PO SCH (21:24)
[2021-08-21] MEDS: Gabapentin 300 MG Cap PO SCH (21:24)
[2021-08-22] MEDS: Acetaminophen 500 MG Tab PO SCH (06:18)
[2021-08-22] MEDS: Nystatin Susp 100,000 Unit/ML 5 ML UD Cup PO SCH (06:18)
[2021-08-22 08:34] VITALS: BP 168/62; PULSE 69
[2021-08-22] MEDS: Losartan 50 MG Tab PO SCH (08:35)
[2021-08-22] MEDS: Lactobacillus Rhamnosus GG (Probiotic) Cap PO SCH (08:35)
[2021-08-22] MEDS: Aspirin 325 MG Tab.EC PO SCH (08:36)
[2021-08-22] MEDS: Nicotine 21 MG/24 Hr Patch TRDERM SCH (08:36)
[2021-08-22] MEDS: Phenytoin 100 MG Cap.ER PO SCH (08:36)
[2021-08-22] MEDS: Metoprolol Succinate 50 MG Tab.ER PO SCH (08:36)
[2021-08-22] MEDS: buPROPion 150 MG Tab.SR PO SCH (08:37)
[2021-08-22] MEDS: amLODIPine 5 MG Tab PO SCH (08:37)
[2021-08-22] MEDS: Bacitracin Oint 28.35 GM Tube TOP SCH (08:44)
== END 2021-08-22 09:55 | disposition home or self-care (01) | DRG 163 ==
LOC: JP.SDS 07:59 → JP.SDSSCHI 07:59 → EDSTATUS 12:15 → JP.ICU 16:55 → JP.MS 08-15 14:07
PROVIDERS: ADMIT Surgery; ATTEND Surgery
PROC: 0BTC0ZZ Resection of Right Upper Lung Lobe, Open Approach (ICD-10-PCS; principal; 2021-08-02)
PROC: 0BCN0ZZ Extirpation of Matter from Right Pleura, Open Approach (ICD-10-PCS; 2021-08-02)
PROC: 0BBD0ZZ Excision of Right Middle Lung Lobe, Open Approach (ICD-10-PCS; 2021-08-02)
PROC: 07B70ZZ Excision of Thorax Lymphatic, Open Approach (ICD-10-PCS; 2021-08-02)
PROC: 0BJ08ZZ Inspection of Tracheobronchial Tree, Via Natural or Artificial Opening Endoscopic (ICD-10-PCS; 2021-08-02)
PROC: 30233N1 Transfusion of Nonautologous Red Blood Cells into Peripheral Vein, Percutaneous Approach (ICD-10-PCS; 2021-08-07)
PROC: 30233N1 Transfusion of Nonautologous Red Blood Cells into Peripheral Vein, Percutaneous Approach (ICD-10-PCS; 2021-08-16)
DX: C34.11 Malignant neoplasm of upper lobe, right bronchus or lung (principal); J18.9 Pneumonia, unspecified organism; J95.812 Postprocedural air leak; Y83.8 Other surgical procedures as the cause of abnormal reaction of the patient, or of later complication, without mention of misadventure at the time of the procedure; Z20.822 Contact with and (suspected) exposure to COVID-19; G89.4 Chronic pain syndrome; G40.909 Epilepsy, unspecified, not intractable, without status epilepticus; N52.9 Male erectile dysfunction, unspecified; I10 Essential (primary) hypertension; I35.1 Nonrheumatic aortic (valve) insufficiency; F17.210 Nicotine dependence, cigarettes, uncomplicated; H54.7 Unspecified visual loss; M19.90 Unspecified osteoarthritis, unspecified site; Z98.49 Cataract extraction status, unspecified eye; R41.0 Disorientation, unspecified; G47.00 Insomnia, unspecified; B96.89 Other specified bacterial agents as the cause of diseases classified elsewhere; Z98.890 Other specified postprocedural states; Z79.899 Other long term (current) drug therapy; Z88.1 Allergy status to other antibiotic agents; T81.82XA Emphysema (subcutaneous) resulting from a procedure, initial encounter
CPT/HCPCS: 0241U; 36415; 36430; 36600; 51703; 71045; 71045-26; 80048; 80053; 80185; 81001; 81003; 82378; 82803; 83735; 83880; 84100; 85025; 85027; 86140; 86850; 86900; 86901; 86920; 86922; 87040; 87086; 87493; 88304; 88305; 88307; 88309; 88313; 88342; 94762; 97110-GP; 97116-GP; 97162-GP; 97530-GP; 97760-GP; A9270-GY; C9113; J0330; J0456; J0690; J1100; J1165; J1170; J1200; J1630; J1644; J1885; J1940; J2020; J2060; J2185; J2310; J2405; J2704; J2710; J3010; J3410; J3411; J3475; J3490; J7030; J7040; J7050; J7120; J7121; P9016; P9047

== ENCOUNTER 2022-08-31 17:54 | Emergency (ER) | payer MEDICARE ==
[2022-08-31 18:12] VITALS: BP 116/54; PULSE 99
== END 2022-08-31 18:40 | disposition home or self-care (01) ==
LOC: JP.ED 17:54
DX: S90.31XA Contusion of right foot, initial encounter (principal); I10 Essential (primary) hypertension; J44.9 Chronic obstructive pulmonary disease, unspecified; M19.90 Unspecified osteoarthritis, unspecified site; Z88.1 Allergy status to other antibiotic agents; Z79.899 Other long term (current) drug therapy; Z79.82 Long term (current) use of aspirin; W19.XXXA Unspecified fall, initial encounter
CPT/HCPCS: 73610-26-RT; 73610-RT; 73630-26-RT; 73630-RT; 99283